=== PATIENT | female | born 1970 | race Caucasian/White ===

== ENCOUNTER 2024-12-22 09:35 | Outpatient (AMB) | payer BC, SELFPAY ==
--- NOTE | 2024-12-22 09:50 | A.OFFPC_ITS ---
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: No Allergies erythromycin base Allergy (Mild, Verified 12/22/24 09:51) Hives Tobacco use date assessed: 12/22/24 Dental Screening Dental Screen Date: 12/22/24 Did you have a dental visit in the last 12 months?: Yes Did you have a dental problem in the last 6 months where you did not have access to dental care?: No Was dental information given to patient?: Patient has dentist HPI HPI Comments History of Present Illness Details The patient is a 54 year old female with a past medical history of cervicx carcinoma in situ, hyperlipidemia, IBS, allergic rhinitis, presenting to [facility] care and for physical exam. Transfer from [facility] [address] Allergic rhinitis stable on fluticasone heme/onc-history of cervical carcinoma in situ. Had laser treatment. 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 HEENT: Denies changes in vision and hearing. RESPIRATORY: Denies SOB and cough. CV: Denies palpitations and CP GI: Denies abdominal pain, nausea, vomiting and diarrhea. : Denies dysuria and urinary frequency. MSK: Denies new myalgia and joint pain. SKIN: Denies rash and pruritus. NEUROLOGICAL: Denies headache PSYCHIATRIC: Denies recent changes in mood. PHYSICAL EXAM: GENERAL: Alert and oriented x 3. NAD EYES: EOMI. Anicteric. HENT: Moist mucous membranes. No scleral icterus. No cervical lymphadenopathy. LUNGS: Clear to auscultation bilaterally. CARDIOVASCULAR: Regular rate and rhythm. No murmur. No JVD. ABDOMEN: Soft, non-tender +bs EXTREMITIES: No edema. Non-tender. SKIN: No rashes or lesions. Warm. NEUROLOGIC: No focal neurological deficits. CN II-XII grossly intact PSYCHIATRIC: Cooperative. 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 1. Little interest or pleasure in doing things: not at all 2. Feeling down, depressed, or hopeless: not at all 3. Trouble falling or staying asleep, or sleeping too much: not at all 4. Feeling tired or having little energy: not at all 5. Poor appetite or overeating: not at all 6. Feeling bad about yourself - or that you are a failure or have let yourself or your family down: not at all 7. Trouble concentrating on things, such as reading the newspaper or watching television: not at all 8. Moving or speaking so slowly that other people could have noticed. Or the opposite - being so fidgety or restless that you have been moving around a lot more than usual: not at all 9. Thoughts that you would be better off or of hurting yourself in some way: not at all Total score: 0 Depression Screening Interpretation: Negative Depression Screening Done: Yes 80886 - PHQ-9 Billing: Yes Source: Developed by Drs. Hiren Gleason, Carie Olivera, Edenilson Car and colleagues, with an educational idalmis from [employer]. Thrive Questionnaire Date Thrive assessed: 12/22/24 I am a: Patient What is your living situation today?: I have a steady place to live Within the past 12 months, did the food you bought not last and you didn't have the money to get more?: Never true Within the past 12 months, did you worry whether your food would run out before you got money to buy more?: Never true Do you have trouble paying for medicines?: No Do you have trouble getting transportation to medical appointments?: No Do you have trouble paying your heating and electricity bill?: No Do you have trouble taking care of your child, family member or friend?: No Do you have trouble with day-to-day activities such as bathing, preparing meals, shopping, managing finances, etc.?: No Are you currently unemployed and looking for a job?: No Are you interested in more education?: No Please select the resources that you would like help with: None Currently or been in a relationship where the following occur: No concerns reported THRIVE Score: 0 AUDIT C Alcohol Use Questionnaire (AUDIT-C) 1. How often do you have a drink containing alcohol?: 2-3 times a week 2. How many drinks containing alcohol do you have on a typical day when you are drinking?: 7 to 9 3. How often do you have six or more drinks on one occasion?: Weekly Total Score: 9 ANA-7 AMB Questionnaire ANA-7 Date ANA - 7 assessed: 12/22/24 Feeling nervous, anxious, or on edge: 0 = Not at all Not being able to stop or control worryin = Not at all Worrying too much about different things: 0 = Not at all Trouble relaxin = Not at all Being so restless that it is hard to sit still: 0 = Not at all Becoming easily annoyed or irritable: 0 = Not at all Feeling afraid as if something awful might happen: 0 = Not at all Total ANA-7 score (0-4 normal; 5-9 mild; 10-14 moderate; 15-21 severe): 0 Source: Developed by Drs. Hiren Gleason, Carie Olivera, Edenilson Car and colleagues, with an educational idalmis from [employer]. ANA-7 Assessment Billing ANA-7 Assessment Tool: ANA-7 Assessment 78937 Physical exam (Primary Care) Vital Signs: Last Vital Signs Temp 98.2 F 12/22/24 09:54 Pulse 72 12/22/24 09:54 Resp 12 12/22/24 09:54 BP 108/74 12/22/24 09:54 Pulse Ox 97 12/22/24 09:54 Oxygen Delivery Method Room Air 12/22/24 09:54 BMI result Body Mass Index 23.7 Tobacco/Smoking Status: Tobacco use Status Tobacco use date assessed 12/22/24 12/22/24 09:58 Patient Tobacco Use Status Current everyday Tobacco 12/22/24 09:58 e-Cigarette/Vaping Use Never Used 12/22/24 09:58 PHQ-9: PHQ-9 Score PHQ-9: Total score 0 12/23/24 08:06 Depression Screening Interpretation: Negative Thrive Assessment: Date of Thrive Assessment Date Thrive assessed 12/22/24 12/22/24 12:17 Currently or been in a relationship where the following occur: No concerns reported Coding Level of Care Code New Pt Prev Care 40-64y(92944) Diagnoses Dyslipidemia E78.5 Carcinoma in situ of cervix, unspecified location D06.9 Carcinoma in situ of uterine cervix location: unspecified part of cervix Additional Codes ANA-7 Assessment Billing - ANA-7 Assessment Tool: ANA-7 Assessment 11931 ([id number]) PHQ-9 - 51219 - PHQ-9 Billing: Yes ([id number]) Assessment & Plan Assessment & Plan (1) Dyslipidemia: Code(s): E78.5 - Hyperlipidemia, unspecified Category: Medical (2) Carcinoma in situ of cervix: Code(s): D06.9 - Carcinoma in situ of cervix, unspecified Category: Medical Qualifiers: Carcinoma in situ of uterine cervix location: unspecified part of cervix Qualified Code(s): D06.9 - Carcinoma in situ of cervix, unspecified Plan 54 year old female to reestablish care Past medical, surgical, social history reviewed Labs ordered. 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 Allergic rhinitis-stable on mirena Orders: Orders Complete Blood Count Auto Diff 12/22/24 E78.5 - Hyperlipidemia, unspecified, Z13.0 - Encounter for screening for diseases of the blood and blood-forming organs and certain disorders involving the immune mechanism, Z13.220 - Encounter for screening for lipoid disorders, Z13.228 - Encounter for screening for other metabolic disorders Comprehensive Met. Panel 12/22/24 E78.5 - Hyperlipidemia, unspecified, Z13.0 - Encounter for screening for diseases of the blood and blood-forming organs and certain disorders involving the immune mechanism, Z13.220 - Encounter for screening for lipoid disorders, Z13.228 - Encounter for screening for other metabolic disorders Lipid Panel 12/22/24 E78.5 - Hyperlipidemia, unspecified, Z13.0 - Encounter for screening for diseases of the blood and blood-forming organs and certain disorders involving the immune mechanism, Z13.220 - Encounter for screening for lipoid disorders, Z13.228 - Encounter for screening for other metabolic disorders Referrals CAFETERIA COOK Referral D06.9 - Carcinoma in situ of cervix, unspecified
[2024-12-22 09:54] VITALS: BP 108/74; PULSE 72; RESP 12; TEMP 36.8; O2SAT 97; BMI 23.7
--- OUTSIDE RECORDS SUMMARY | 2024-12-22 10:09 | XMS_ITS | Clinical Summary ---
Author Organization [facility] Address [address] [place] [address] Care Team Providers Care Synchronizer Name Role Phone Jose Cuenca Primary Care Provider [phone] Allergies Active Allergy Reactions Criticality Noted Date Comments Erythromycin Hives High 02/25/2023 Medications fluticasone (FloNASE) 50 mcg/spray nasal spray 1 spray into each nostril daily. Active amoxicillin (AMOXIL) 500 MG capsuleIndicatio ns:Non-recurrent acute suppurative otitis media of right ear without spontaneous rupture of tympanic membrane Take 1 capsule (500 mg total) by mouth 2 (two) times a day. 14 capsule 02/25/2023 Active Active Problems No known active problems Social History Tobacco Use Types Packs/Day Years Used Date Smoking Tobacco: Every Day Cigarettes Smokeless Tobacco: Never Alcohol Use Standard Drinks/Week Comments Yes 0 (1 standard drink = 0.6 oz pur e alcohol) Comments Unknown Sex and Gender Information Value Date Recorded Sex Assigned at Not on file Legal Sex Female 4:30 PM EDT Gender Identity Not on file Sexual Orientation Not on file Last Filed Vital Signs Vital Sign Reading Time Taken Comments Blood Pressure 131/81 02/25/2023 5:08 PM EDT Pulse 95 02/25/2023 5:08 PM EDT Temperature 36.4 C (97.6 F) 02/25/2023 5:08 PM EDT Respiratory Rate 16 02/25/2023 5:08 PM EDT Oxygen Saturation 98% 02/25/2023 5:08 PM EDT Inhaled Oxygen Concentration - - Weight 63.5 kg (140 lb) 02/25/2023 5:08 PM EDT Height 165.1 cm (5' 5 ) 02/25/2023 5:08 PM EDT Body Mass Index 23.3 02/25/2023 5:08 PM EDT Plan of Treatment Health Maintenance Due Date Last Done Comments Hepatitis C Virus Screening 1968 HIV Screening 1981 DTaP/Tdap/Td Vaccines (1 - Tdap) 10/06/1987 Hepatitis B Vaccines (1 of 3 - 19+ 3-dose series) 09/24 Pneumococcal Vaccines 50+ (1 of 2 - PCV) 10/06/1987 Pap Smear (Ages 21-65) 1989 Mammogram 2008 Colonoscopy 2013 Zoster (Shingles) Vaccine (1 of 2) 2018 COVID-19 Vaccine (1 - 2023- season) 2024 Influenza Vaccine 12/25/2024 Insurance [facility] Care Teams Synchronizer Relationship Specialty Start Date End Date Jose Cuenca DO [address] [place] [address] PCP - General Family Medicine 02/25/23
--- OUTSIDE RECORDS SUMMARY | 2024-12-22 10:09 | XMS_ITS | Clinical Summary ---
Author Organization [facility] [address] [facility] Address [address] [place] [address] Phone Care Team Providers Care Appellate Law Clerk Name Role Phone Physician, Pcp Unknown Primary Care Provider Hilda vailable Allergies Active Allergy Reactions Criticality Noted Date Comments Erythromycin High 07/16/2005 Other Reaction(s): Hives/Urticaria Medications MULTIVITAMIN ORAL one qd Active levonorgestreL (MIRENA) 21 mcg/24hr (up to 8 yrs) 52 mg IUD 1 Each by Intrauterine route Once. 4 06/20/19 29 Active neomycin-polymy nimisha-hydrocortis one (CORTISPORIN) 3.5-10,000-1 mg/mL-unit/mL-% otic suspension Place 3 Drops into both ears 4 times daily for 10 days. Tilt head so ear to be treated points towards the ceiling. 3 Active levonorgestreL (MIRENA) 21 mcg/24hr (up to 8 yrs) 52 mg IUD 1 Each by Intrauterine route once. Active fluticasone propionate (FLONASE) 50 mcg/actuation nasal spray INHALE 2 SPRAYS IN EACH NOSTRIL ONCE DAILY NEEDED FOR ALLERGIES 8 Active Active Problems Problem Noted Date Diagnosed Date Breast cyst 05/05/2010 Allergic rhinitis 06/01/2009 Carcinoma in situ of cervix uteri 07/02/2006 Overview (04/22/2024): Hollie treatment - Normal FU Irritable bowel syndrome 07/02/2006 Overweight 07/02/2006 Tobacco use disorder 07/02/2006 Pure hypercholesterolemia 07/16/2005 Immunizations Name Administration Dates Next Due Hep B, Unspecified 07/16/2005 Hepatitis B Pediatric (Enger ix B; Recombivax HB) to less than 20 yo 04/26/1999,11/24/1998,10/25/1998 Influenza trivalent, with pr eservative (Fluzone; Afluria) 6mo and older 06/25/2012 Td Tetanus diptheria (Tdvax) 7yo and older 09/06 Td, Unspecified 09/06/2004 Tdap Tetanus diptheria acell ular pertussis (Boostrix; Adacel) 7yo and older 06/07/2022,06/05/2011 Surgical History Surgery Date Site/Laterality Comments OTHER SURGICAL HISTORY PROCEDURE: CERVICAL BIOPSY SPCMN PATHOLOGY EXAM; COMMENT: Lazer Rx for SANDY OTHER SURGICAL HISTORY PROCEDURE: AL OSTEOTOMY PHALANX FINGER EACH; COMMENT: bony lorne after injury WISDOM TOOTH EXTRACTION PROCEDURE: HISTORICAL WISDOM TEETH EXTRACTION FINE NEEDLE ASPIRATION Right PROCEDURE: FINE NDLE ASPRTN W/IMAGING GUIDANCE; COMMENT: cyst BREAST BIOPSY 07/10/2016 Left PROCEDURE: AL BX BREAST W/DEVICE 1ST LESION ULTRASOUND GUID; COMMENT: aprocrine metaplasia Medical History Medical History Date Comments Irritable bowel syndrome DX:Irri table bowel syndrome Carcinoma in situ of cervix uteri DX:Carcinoma in situ of cervix uteri Tobacco use disorder DX:Tobacco use disorder; COMMENT: 05/30ppd IUD (intrauterine device) in place 2016 DX:IUD (intrauterine device) in place; COMMENT: Mirena Abnormal cytological finding in specimen from cervix DX:Abnormal cytological find ing in specimen from cervix Breast cyst 05/05/2010 Family History Medical History Relation Name Comments Hypertension Father Lung cancer Maternal Grandfather Heart attack Paternal Grandfather Breast cancer Neg Hx Colon cancer Neg Hx Ovarian cancer Neg Hx Prostate cancer Neg Hx Uterine cancer Neg Hx Relation Name Status Comments Brother Alive Healthy Father Alive Healthy x hip a rthritis bilateral THR Maternal Grandfather Lung ca ncer Maternal Grandmother Depress ion - suicide Mother Alive Thyroid , Depre ssion Paternal Grandfather NH, gla ucoma Paternal Grandmother CVA, ar thitis hips Son 1 Alive ADHD Son 2 Alive ADD Social History Tobacco Use Types Packs/Day Years Used Date Smoking Tobacco: Every Day Cigarettes Smokeless Tobacco: Never Alcohol Use Standard Drinks/Week Comments Yes 8 (1 standard drink = 0.6 oz pur e alcohol) Comments No Sex and Gender Information Value Date Recorded Sex Assigned at Not on file Legal Sex Female 2:30 AM EST Gender Identity Not on file Sexual Orientation Not on file Obstetrics History Para Term AB IAB SAB Ectopic Multiple Livin g Live Births 2 2 2 2 2 Date Outcome GA Total Labor Labor/2nd/3rd Weight Sex Type Anes PTL Shraddha A1 A5 Name Clin Term Vag-S pont Living Term Vag-S pont Living Last Filed Vital Signs Vital Sign Reading Time Taken Comments Blood Pressure 101/68 06/23/2024 1:30 PM EST Pulse 83 06/23/2024 1:30 PM EST Temperature - - Respiratory Rate - - Oxygen Saturation - - Inhaled Oxygen Concentration - - Weight 64 kg (141 lb) 06/23/2024 1:30 PM EST Height 166.4 cm (5' 5.5 ) 06/18/2023 11:20 AM ES T Body Mass Index 23.11 06/18/2023 11:20 AM EST Plan of Treatment Health Maintenance Due Date Last Done Comments Pneumococcal Vaccine: 50+ Years (1 of 2 - PCV) 10/06/1987 Hepatitis B Vaccines (2 of 3 - 19+ 3-dose series) 08/13/2005 07/16/2005, 04/26/1999, 11/24/1998, Additional history exists Social Influencers of Health Screening 05/05/2022 Breast Cancer Screening 05/02/2023 05/02/20, 04/26/2020, 04/21/2019, Additional history exists COVID-19 Vaccine ( season) 2024 09/29/2021, 09/29/2021, 05/09/2021, Additional history exists Depression Screening 05/27/2024 Influenza Vaccine (#1) 2025 06/25/2012 Cholesterol Screening (Lipid Panel) 06/07/2027 06/07/2022 Colorectal Cancer Screening: Colonoscopy 04/02/2029 04/02/2019 Cervical Cancer Screening: HPV 06/23/2029 06/23/2024, 06/07/2022 DTaP,Tdap,and Td Vaccines (5 - Td or Tdap) 06/07/2032 06/07/2022, 06/05/2011, 09/06/2004, Additional history exists HIV Screening Completed 06/21/2016 Hepatitis C Screening Completed 06/21/2016 Zoster Vaccines Completed 08/29/2022, 06/19/2022 HIB Vaccines Aged Out No longer eligi ble based on patient's age to complete this topic HPV Vaccines Aged Out No longer eligi ble based on patient's age to complete this topic Hepatitis A Vaccines Aged Out No long er eligible based on patient's age to complete this topic IPV Vaccines Aged Out No longer eligi ble based on patient's age to complete this topic MMR Vaccines Aged Out No longer eligi ble based on patient's age to complete this topic Meningococcal ACWY Vaccine Aged Out N o longer eligible based on patient's age to complete this topic Meningococcal B Vaccine Aged Out No l onger eligible based on patient's age to complete this topic RSV Immunization Patients Under 20 months Aged Out No longer eligible based on patient's age to complete this topic Varicella Vaccines Aged Out No longer eligible based on patient's age to complete this topic Procedures Procedure Name Priority Date/Time Associated Diagnosis Comments HPV WITH REFLEX GENOTYPE Routine 06/23/2024 1:57 PM EST Encounter for annual physical examination excluding gynecological examination in a patient older than 17 years LIPID PANEL Routine 06/07/2022 SCREENING MAMMOGRAPHY BI 2-VIEW BREAST INC CAD Routine 05/02/2021 1:17 PM EST Encounter for other screening for malignant neoplasm of breast COLONOSCOPY Routine 04/02/2019 HEPATITIS C SCREENING Routine 06/21/2016 HIV SCREENING Routine 06/21/2016 from Last 3 Months or Most Recently Relevant to Health Maintenance Results * HPV with reflex genotype (06/23/2024 1:57 PM EST) HPV Negative Negative LAB MICROBIOLOGY METHOD 06/24/2024 3:31 PM EST [facility] Brushing Cervix uteri structure / Unknown 06/23/2024 1:57 PM EST 06/24/2024 6:10 AM EST Brian ORR LAB MOLECULAR DIAGNOSTICS ORD ERABLES Final Result ROYAL QUIROGA PA ([facility]) [facility] [address] [place] [address], * (ABNORMAL) Lipid panel (06/07/2022) Triglycerides 73 0 - 150 mg/dL Cholesterol 232(A) 0 - 200 mg/dL HDL 121 >=40 mg/dL LDL Cholesterol 97 0 - 100 mg/dL Blood Venous blood specimen / Unknown us Historical Provider LAB BLOOD ORDERABLES Agustina l Result * SCREENING MAMMOGRAPHY BI 2-VIEW BREAST INC CAD (05/02/2021 1:17 PM EST) Anatomical Region Laterality Modality Radiographic Yancy ging 04/26/2020 1:03 PM EST Narrative 05/03/2021 4:29 PM EST This is a summary report. The complete report is available in the patient's medical record. If you cannot access the medical record, please contact the sending organization for a detailed fax or copy. Exam: Screening mammogram Findings: Digital bilateral full-field screening mammography is performed with tomosynthesis and interpreted with the aid of computer-aided detection. Comparison is made with 04/26/2020 and as far back as 07/10/2016. Breast parenchyma is heterogeneously dense, limiting mammographic sensitivity. Stable grouping of microcalcifications in the upper outer right breast. No new suspicious mass, architectural distortion, or suspicious calcifications. Impression: No mammographic evidence of malignancy. BI-RADS 2-benign Procedure Note Farnaz Bergman MD - 05/15/2022 This is a summary report. The complete report is available in thepatient's medical record. If you cannot access the medical record, pleasecontact the sending organization for a detailed fax or copy. Exam: Screening mammogram Findings: Digital bilateral full-field screening mammography is performedwith tomosynthesis and interpreted with the aid of computer-aideddetection. Comparison is made with 04/26/2020 and as far back as07/10/2016. Breast parenchyma is heterogeneously dense, limiting mammographicsensitivity. Stable grouping of microcalcifications in the upper outerright breast. No new suspicious mass, architectural distortion, orsuspicious calcifications. Impression: No mammographic evidence of malignancy. BI-RADS 2-benign Brian Biggs CNM IMG XR PROCEDURES Final Resul t * Colonoscopy (04/02/2019) Colonoscopy no interpretation , abstracted Anatomical Region Laterality Modality Other Historical Provider HEALTH MAINTENANCE Final Result * HIV Screening (06/21/2016) Pathologist [facility] HIV Screening Abstracted Historical Provider HEALTH MAINTENANCE Final Result * Hepatitis C Screening (06/21/2016) Hepatitis C Screening Abstracted [facility] Provider HEALTH MAINTENANCE Final Result from Last 3 Months or Most Recently Relevant to Health Maintenance Insurance [employer] [place] ([facility]) Care Teams Appellate Law Clerk Relationship Specialty Start Date End Date Physician, Pcp Unknown PCP - General 06/23/24
== END 2024-12-22 10:15 | disposition home or self-care (01) ==
LOC: HO.HMCFM 09:36
PROVIDERS: PCP Internal Medicine; Visit Provider Internal Medicine
DX: Z00.00 Encounter for general adult medical examination without abnormal findings (principal); E78.5 Hyperlipidemia, unspecified; D06.9 Carcinoma in situ of cervix, unspecified

== ENCOUNTER → 2024-12-22 09:35 | Outpatient (BNVA) | payer BC, SELFPAY | PROVIDERS: PCP Internal Medicine; Visit Provider Internal Medicine | DX: Z00.00 Encounter for general adult medical examination without abnormal findings (principal); Z13.31 Encounter for screening for depression; Z13.30 Encounter for screening examination for mental health and behavioral disorders, unspecified; E78.5 Hyperlipidemia, unspecified; D06.9 Carcinoma in situ of cervix, unspecified; Z71.6 Tobacco abuse counseling | CPT/HCPCS: 96127 ==

== ENCOUNTER 2024-12-22 10:37 | Outpatient (REF) | payer BC, SELFPAY ==
[2024-12-22 14:01] LABS: MANUAL DIFF FLAG NO
[2024-12-22 14:13] LABS: Hematocrit 40.3 % (37.0-47.0); Hemoglobin 14.0 g/dl (12.0-16.0); Imm Gran Abs Auto 0.02 X10*3/uL (0.00-0.03); Imm Gran Pct Auto 0.4 % (0.0-0.4); Lymphocytes Absolute Auto 1.3 X10*3/uL (1.2-4.9); Mean Corpuscular HGB Conc 34.7 g/dl (31.0-35.0); Mean Corpuscular Hemoglobin 31.3 pg (27.0-33.0); Mean Corpuscular Volume 90.0 fL (80.0-98.0); NRBC Abs Auto 0.000 X10*3/uL (0.0-0.012); NRBC Pct Auto 0.0 /100WBC (0.0-0.2); Platelet Count 237 X10*3/uL (160-400); Red Blood Count 4.48 X10*6/uL (4.20-5.50); White Blood Count 4.8 X10*3/uL (4.8-10.8)
[2024-12-22 14:28] LABS: Alanine Aminotransferase 73 U/L (0-31); Albumin Level 4.8 g/dL (3.5-5.0); Alkaline Phosphatase 45 U/L (39-117); Anion Gap 13 (12-20); Aspartate Amino Transferase 72 U/L (5-31); Blood Urea Nitrogen 5 mg/dL (9-16); Calcium 9.0 mg/dL (8.4-10.2); Carbon Dioxide 26 mmol/L (22-29); Chloride 99 mmol/L (96-108); Cholesterol 248 mg/dL (<200); Estimated Glomerular Filt Rate > 60; HDL Cholesterol 134 mg/dL (>40); Potassium 4.2 mmol/L (3.3-5.1); Sodium 134 mmol/L (135-145); Total Protein 7.5 g/dL (6.5-8.0); Triglycerides 70 mg/dL (<150)
== END 2024-12-22 10:38 | disposition home or self-care (01) ==
LOC: HO.WFDLDS 10:37
PROVIDERS: Visit Provider Internal Medicine
DX: Z13.0 Encounter for screening for diseases of the blood and blood-forming organs and certain disorders involving the immune mechanism (principal); Z13.220 Encounter for screening for lipoid disorders; Z13.228 Encounter for screening for other metabolic disorders; E78.5 Hyperlipidemia, unspecified
CPT/HCPCS: 36415; 80053; 80061; 85025